=== PATIENT | female | born 1990 | race Caucasian/White ===

== ENCOUNTER → 2022-10-29 | Outpatient (CLI) | payer OTHER | LOC: COL.RAD 10:07 | DX: K58.1 Irritable bowel syndrome with constipation (principal) ==

== ENCOUNTER → 2022-12-02 | Outpatient (CLI) | payer OTHER | LOC: MHCPAIN 08:10 | DX: M54.50 Low back pain, unspecified (principal); M54.18 Radiculopathy, sacral and sacrococcygeal region; M53.3 Sacrococcygeal disorders, not elsewhere classified | CPT/HCPCS: G0463 ==